=== PATIENT | female | born 1940 | race Caucasian/White ===

== ENCOUNTER 2016-10-21 08:51 | Inpatient (IN) | payer MEDICARE, OTHER ==
[2016-10-21] VITALS (14 sets, daily range): BP systolic 96–147; BP diastolic 61–88; PULSE 67–86; RESP 13–23; O2SAT 90–97
[~2016-10-21] VITALS: Ht 167.6 cm; Wt 36.3 kg
[2016-10-21] MEDS: Lactated Ringer's 1,000 ML IV SCH ×4 (05:00→18:45)
[2016-10-21] MEDS: Vancomycin Inj 1,000 MG in IV Premix 1 EACH IV SCH ×2 (06:00→09:51)
[~2016-10-21 08:51] MED LIST: CALC-78 PO; Clindamycin 900 mg/50 mL D5W IV SCH; LEVO88TA4 PO; Lactated Ringer's 1,000 ML IV SCH; MELO7.5O PO; OXYQ113.2 VAGINAL
--- NOTE | 2016-10-21 11:47 | PCM.HPANE ---
Patient Data Date of Service: Oct 21, 2016 Surgeon Admitting Provider: Attending Provider:Octavio Pizarro MD Primary Care Physician:Yesenia Padilla MD Other Provider:Elisa Rodriguez Anesthesia Reason for Visit Right Hip Arthritis Ht/WT & BMI Height (Feet): 5 Height (Inches): 6 Weight (Kilograms): 36.3 Body Mass Index 12.00 Allergies Coded Allergies: Penicillins (Verified Allergy, Unknown, 10/21/16) nickel (Verified Adverse Reaction, Severe, REDNESS, 10/19/16) Uncoded Allergies: NOVACAIN (Allergy, Severe, SWELLING, 10/21/16) Past Anesthesia History Anesthesia History: Denies:: Anesthesia Reactions, Malignant Hyperthermia Diabetes History Hx Diabetes?: No MRSA MRSA: No Medications Home Meds Incl Beta Annie: No Reported Medications Oxyquinoline/Sod.lauryl Sulfat (Trimo-Horowitz Jelly)113.4 Gm Jelly.appl0.5 Gm VAGINAL 2X/WEEK 10/19/16 Levothyroxine 88 Mcg Flpirf81 Mcg PO DAILY Ref 0 10/19/16 Calcium Carbonate/Vitamin D3 (Calcium 500 + Vit D Caplet)1 Each Tablet1 Each PO DAILY 10/19/16 Meloxicam 7.5 Mg/5 Ml Oral.susp15 Mg PO DAILY 30 Days 10/19/16 History History of ENT Problems?: No Denture Type: Full- Upper Full- Lower Hx of Heart Problems?: No Cardiovascular History: Denies:: Heart Murmur Hypertension Hx of Respiratory Problem?: No Respiratory History: Denies:: Use of C-PAP Machine Hx Neurologic Problems?: Yes Neurological History: Positive for:: Headaches Denies:: Parkinson's Disease (TREMOR) Hx of GI Problems?: No Hx of Problems?: Yes Genitourinary History: Positive for:: Kidney Stones (HX KIDNEY STONES PASSED ON OWN & S/P LITHOTRIPSY) Urinary Tract Infection (HX OF) Female Hx: Positive for:: Problems with Breasts? (S/P BREAST BX/LUMPECTOMY FOR CA) Denies:: Currently Skin History: Denies:: History Skin Disorders? Pressure Ulcers Hx Musculoskeletal Problems?: Yes Musculoskeletal History: Positive for:: Degenerative Joint Osteoarthritis (RT HIP=CURRENT PROBLEM) Hx of Psycho/Social Problems?: Yes Psycho Social History: Positive for:: Hx Depression (HX OF) Hx Surgeries?: Yes (LITHOTRIPSY,BREAST BX/LUMPECTOMY) Hx Any Other Health Problems?: Yes Other History: Positive for:: Cancer (BREAST) Thyroid Disease Denies:: Endocrine Disease Hospitalization Hx Diabetes: No Have You Smoked inLast 12 mo: NoApprox How Many Cigarettes/day: 30YR HX Stop/Bang S-Snoring: Do You Snore Loudly: No T-Tired: feel tired, fatigued: No O-Obsered: Observed not breath: No P-Blood Pressure: treated: No B- Body Mass Index > 35 kg/m2: No A- Age over 50: Yes N- Neck Large Circumference: No G- Gender Male: No SKYLER Total Score: 1 SKYLER Risk Assessment: Low Risk, <3 Yes Risk Assessment Category Category 1A: Patient has history of documented sleep apnea, and HAS NOT received any narcotic, sedative or anesthesia administration during this stay. Category 1B: Patient has history of documented sleep apnea, and HAS received any narcotic , sedative or anesthesia administration during this stay Category 2: Patient has SUSPECTED Obstructive Sleep Apnea, and HAS received any narcotic , sedative or anesthesia administration during this stay. Category 3: Patient has SUSPECTED Obstructive Sleep Apnea and HAS NOT received narcotic, sedative or anesthesia administration during this stay. Category 4: Outpatient in Procedural Areas with known sleep apnea or who screen positive for High Risk via the STOP/BANG questionnaire. Exam Exam Vital Signs Vital Signs Date Time Temp Pulse Resp B/P Pulse Ox O2 Delivery O2 Flow Rate FiO2 10/21/16 09:27 36.3 68 20 134/88 97 Room Air General Appearance: Alert, Oriented X3, Cooperative, No Acute Distress HEENT/AIRWAY: MP 2 Lungs: Clear to Auscultation, Normal Air Movement Heart: Exam Unremarkable, Regular Rate/Rhythm, No Murmurs/Rubs/Gallops Meds/Labs/Diagnostics Admission Meds Current Medications Lactated Ringer's 1,000 ml @ 120 mls/hr Q8H20M IV Last administered on 09:15; Start 10/21/16 at 05:00; Stop 10/21/16 at 13:19 Vancomycin/0.9 % Sod Chloride/ Premix (Vancomycin Inj/ IV Premix) 200 ml @ 133.333 mls/hr PREOP IV Last administered on 10/21/16 09:51; Start 10/21/16 at 06:00; Stop 10/21/16 at 19:00 Plan Impression Patient chart reviewed, patient interviewed and anesthestic plan with risks, benefits, and alternatives discussed, and informed consent obtained. NPO Status: 10/20/16 ASA Physical Status: ASA2 Mod Systemic Disease Anesthetic Plan: SAB Bene/Risks/Altern/Consents: Yes HP Complete Prior to Induction: Yes Other Discussed patient local anesthesia allergies. She states that an candy spreader helper said it was actually to an additive. She has subsequently had lidocaine without reaction. Keny Michael MD Oct 21, 2016 11:47
[2016-10-21] MEDS ORDERED: Tranexamic Acid 100 mg/mL 10 mL Inj ONE (13:13)
[2016-10-21] MEDS ORDERED: 0.9% Sodium Chloride 200 ML ONE (13:14)
[2016-10-21] MEDS ORDERED: Tranexamic Acid 100 mg/mL 10 mL Inj TOPICAL ONE ×2 (13:25→14:25)
[2016-10-21] MEDS ORDERED: hydrALAZINE 20 mg/mL Inj IVPUSH PRN (13:45)
[2016-10-21] MEDS ORDERED: Labetalol 5 mg/mL 4 mL Inj IV PRN (13:45)
[2016-10-21] MEDS ORDERED: HYDROmorphone 1 mg/mL Inj IVPUSH PRN (13:45)
[2016-10-21] MEDS ORDERED: EPHEDrine Sulfate 50 mg/mL Inj IVPUSH PRN (13:45)
[2016-10-21] MEDS ORDERED: fentaNYL-PF 50 mCg/mL 2 mL Inj IVPUSH PRN (13:45)
[2016-10-21] MEDS ORDERED: MetoCLOpramide 5 mg/mL 2 mL Inj IVPUSH PRN ×2 (13:45→18:35)
[2016-10-21] MEDS ORDERED: Phenylephrine 10,000 mCg/mL Inj IVPUSH PRN (13:45)
[2016-10-21] MEDS ORDERED: Ondansetron 2 mg/mL 2 mL Inj IVPUSH PRN ×3 (13:45→18:35)
[2016-10-21] MEDS ORDERED: Atropine 0.4 mg/mL Inj IVPUSH PRN (13:45)
[2016-10-21] MEDS ORDERED: Lactated Ringer's 500 ML IV PRN (13:45)
[2016-10-21] MEDS ORDERED: Lactated Ringer's 1,000 ML IV SCH (13:45)
[2016-10-21] MEDS ORDERED: Gentamicin 40 mg/mL 2 mL Inj IRRIGATION ONE (13:57)
[2016-10-21] MEDS ORDERED: Bupivacaine-MPF 0.5% W/EPI 30 mL Inj INFILTRATE ONE (13:58)
--- NOTE | 2016-10-21 15:44 | DRSVH ---
PROCEDURE: X-RAY PELVIS ONE OR TWO VIEWS (10180) INDICATIONS: POSTOPERATIVE TECHNIQUE: 1 view of the lower pelvis acquired. COMPARISON: [facility], , XR PELVIS 1 OR 2VW, 05/11/2016, 17:32. FINDINGS: Bones: Patient is status post right hip arthroplasty, with hardware components in expected positions . The hip joint appears congruent. The visualized bony structures appear intact. Soft tissues: Overlying postoperative changes are noted. No suspicious soft tissue densities. IMPRESSION: Right hip prosthesis in anatomic alignment. Dictated by: Javier Spence M.D. on 10/21/2016 at 15:42 Approved by: Javier Spence M.D. on 10/21/2016 at 15:42
--- NOTE | 2016-10-21 15:49 | OP ---
[address] [address] OPERATIVE REPORT PATIENT: YELITZA VALDES : 1940 MR#: [id number] ADMIT: 10/21/2016 JOB ID: [id number] DATE OF SURGERY: 10/21/2016 PREOPERATIVE DIAGNOSIS(ES): Severe arthritis, right hip. POSTOPERATIVE DIAGNOSIS(ES): Severe arthritis, right hip. PROCEDURE: Total hip arthroplasty. SURGEON: Octavio Pizarro MD. [employer]DER [employer]: John Davila PA-C. The assistant manager retail required due to the complexity of the operation. INDICATIONS: Severe progressive osteoarthritis. Symptoms uncontrolled by conservative treatment. The patient wishes to proceed, understanding and accepting the potential for risks and complications which include, but are not limited to, infection, thromboembolic or neurovascular events, as well as potential for dislocation, leg length inequality and other complications. DESCRIPTION OF PROCEDURE: The patient was prepped and draped in the usual sterile fashion. A posterolateral approach was made. Dissection was carried down. External rotators tagged and released. Capsule T-tagged and released. Then placed in the pelvis, and length and offset measurements were made. The hip was dislocated. A standard femoral neck cut was made. The acetabulum was cleaned of soft tissues. Progressively reamed with a 53 reamer, and a 54 outer bearing shell was impacted into place. Excellent stability was obtained with the shell fixation. Straight T-handle reamer, followed by box osteotome and progressive broaching of the femoral canal to a 9 Taperloc implant. Trial reductions performed alternating between a high offset and a standard offset, and a standard offset with a +6 neck length was chosen. The patient has a NICKEL allergy, and it was chosen to use a ceramic head due to the NICKEL allergy. Wounds were irrigated with a sterile irrigant. Final implant was placed. Repeat trial reductions confirming the above stability and appropriate length and offset. Excellent fixation of the implant was achieved. The final construct was assembled. A deep irrigation with dilute Betadine solution, followed by closure of the deep fascia with #2 Quill, 2-0 Vicryl, 3-0 Vicryl and a 4-0 intracuticular stitch was utilized. Patient tolerated procedure well. There were no complications.
--- NOTE | 2016-10-21 15:50 | PCM.ANEP1 ---
Post Anesthesia Phase 1 PACU Phase 1 Assessment Date of Service: Oct 21, 2016 Vital Signs Vital Signs Date Time Temp Pulse Resp B/P Pulse Ox O2 Delivery O2 Flow Rate FiO2 10/21/16 15:30 67 13 106/63 97 Nasal Cannula 2 10/21/16 15:15 35.8 72 15 105/61 95 Nasal Cannula 2 10/21/16 15:10 68 15 107/63 96 Nasal Cannula 2 10/21/16 15:05 16 90 10/21/16 15:05 72 23 134/65 92 Nasal Cannula 2 10/21/16 15:00 36.4 147/67 10/21/16 09:27 36.3 68 20 134/88 97 Room Air Anesthetic Administered: SAB Level of Alertness: Awake, talking HARMON's with Equal Strength: Yes Pain: No Nausea or Vomiting: No Lungs: Clear to Auscultation, Normal Air Movement Dermatome Level: L1,2 (Groin) Keny Michael MD Oct 21, 2016 15:50
--- NOTE | 2016-10-21 15:50 | PCM.ANEP2 ---
Post Anesthesia Evaluation ASA/CMS Post Anesthesia Date of Service: Oct 21, 2016 VS in Patient's Normal Range?: Yes Resp Stable; Airway Patent?: Yes CV Function & Hydration Stable: Yes Mental Status Recovered?: Yes Pain control Satisfactory?: Yes N/V Control Satisfactory?: Yes Keny Michael MD Oct 21, 2016 15:50
--- NOTE | 2016-10-21 17:30 | NUR ---
ADMIT to [facility] Patient arrived to room 1001 on hospital bed. Alert and oriented, answering all questions. 2 LPM O2 via NC. Franks catheter patent and draining. Island dressing to R hip C/D/I. SCD on non-operative leg. Denies any pain. Able to wiggle toes bilaterally and lift legs off bed. Denies nausea. Oriented to room. Reminded of hip precautions.
[2016-10-21] MEDS ORDERED: Propofol 10,000 mCg/mL 20 mL Inj ONE (17:49)
[2016-10-21] MEDS ORDERED: fentaNYL-PF 50 mCg/mL 2 mL Inj ONE (17:49)
[2016-10-21] MEDS ORDERED: Phenylephrine/NS 100 mCg/mL 10 mL Syringe IVPUSH ONE (17:49)
[2016-10-21] MEDS ORDERED: Dexamethasone 4 mg/mL Inj ONE (17:49)
[2016-10-21] MEDS ORDERED: Ondansetron 2 mg/mL 2 mL Inj ONE (17:49)
[2016-10-21] MEDS ORDERED: EPHEDrine/NS 5 mg/mL 5 mL Syringe ONE (17:49)
[2016-10-21 18:02] LABS: APPEARANCE,URINE HAZY (CLEAR,HAZY); COLOR,URINE STRAW (YELLOW); OCCULT BLOOD,URINE NEGATIVE (NEGATIVE); PH,URINE 7.5 (5.0-8.0); UROBILINOGEN,URINE NORMAL (NORMAL)
[2016-10-21] MEDS ORDERED: Sodium Biphos-Phos 133 mL Enema RECTAL PRN (18:35)
[2016-10-21] MEDS ORDERED: Magnesium Hydroxide 10 mL Oral Concentration PO PRN (18:35)
[2016-10-21] MEDS ORDERED: diphenhydrAMINE 25 mg Capsule PO PRN (18:35)
[2016-10-21] MEDS ORDERED: hydrOXYzine Inj 25 MG/1 mL SDV IM PRN (19:00)
[2016-10-21] MEDS: Ketorolac 15 mg/mL Inj IVPUSH SCH (19:06)
[2016-10-21] MEDS: hydrOXYzine Pamoate 25 mg Capsule PO PRN (19:58)
[2016-10-21] MEDS: HYDROcodone-APAP 5-325 mg Tablet PO PRN ×2 (19:59→21:21)
[2016-10-21] MEDS ORDERED: Vancomycin Inj 1,000 MG in IV Premix 1 EACH IV ONE (22:00)
[2016-10-21] MEDS: Clindamycin 600 mg/50 mL D5W IV SCH (22:30)
--- NOTE | 2016-10-21 23:54 | NUR ---
PAIN: Pt. c/o surgical pain on right leg. Was given IV Toradol by day shift RN, No effective for pain control. Given PO Vicodin and Vistaril, No effective. Given 5 mg of Roxicodone, pt. resting for now. Will cont. to monitor pain issues. On going care.
[2016-10-22] VITALS (7 sets, daily range): BP systolic 87–102; BP diastolic 50–67; PULSE 63–74; RESP 16–20; O2SAT 91–93
[2016-10-22] MEDS: Ketorolac 15 mg/mL Inj IVPUSH SCH ×2 (00:29→05:45)
[2016-10-22] MEDS: hydrOXYzine Pamoate 25 mg Capsule PO PRN ×3 (03:03→20:11)
[2016-10-22] MEDS: HYDROcodone-APAP 5-325 mg Tablet PO PRN (03:03)
[2016-10-22 05:42] LABS: BASOPHILS % (AUTO) 0.1 % (0-3); EOSINOPHILS % (AUTO) 0 % (0-5); MONOCYTES % (AUTO) 7.8 % (4-12); Mean Corpuscular Hemoglobin 31.6 pg (27.0-35.0); Mean Corpuscular Volume 96.6 fL (81-100); NEUTROPHILS % (AUTO) 85.5 % (40-74); Platelet Count 262 bil/L (150-400)
[2016-10-22] MEDS: Clindamycin 600 mg/50 mL D5W IV SCH (05:44)
--- NOTE | 2016-10-22 06:26 | PCM.PNORTH ---
Subjective Date of Service: Oct 22, 2016 Visit Information: Reason for Visit Right Hip Arthritis Surgery/Surgery Date Post-Op Day # Date of Admission: Oct 21, 2016 at 17:48 Hospital Day # Subjective Palpation awake and alert with no complaints of pain at this time. Discussed anticipated hospital course today and encourage participation with formal physical therapy. Discussed discharge to home on a referral for postop day #3. Postop General: No Complaints, No Shortness of Breath, No Chest Pain Pain Management: PO, IV Push Objective Exam Objective Orientation: Alert and oriented 3 and pleasant. Dressing: Intraoperative dressing is clean dry and intact. Wound: Wound not observed today. Compartments: Calf and thigh are soft and nontender. Mobility/sensation: Toe wiggle and sensation are intact at right lower extremity distally. Abduction wedge: Pupils are found between the knees for abduction. BENEDICT hose: Absent Franks: In place and working Drain: Absent Gait: No gait with physical therapy as of this time. Vital Signs and I/O Vital Sign - Last Date Time Temp Pulse Resp B/P Pulse Ox O2 Delivery O2 Flow Rate FiO2 10/22/16 00:15 36.3 74 17 102/67 93 Nasal Cannula 2.00 Intake and Output 10/21/16 10/21/16 10/22/16 Cumulative From/Thru 15:00 23:00 07:00 10/19/16 08:26 - 10/22/16 05:47 Intake Total 1200 ml 304 ml 764 ml 2268 ml Output Total 250 ml 200 ml 450 ml Balance 950 ml 104 ml 764 ml 1818 ml Intake IV Total 1200 ml 304 ml 764 ml 2268 ml Output Urine Total 150 ml 200 ml 350 ml Estimated Blood Loss 100 ml 100 ml Lab & Micro Results Laboratory Tests Test 10/21/16 16:50 10/22/16 05:10 Urine Color Straw (YELLOW) Urine Appearance Hazy (CLEAR,HAZY) Urine pH 7.5 (5.0-8.0) Urine Specific [place] 1.015 (1.003-1.035) Urine Protein Negativemg/dL (NEG,TRACE) Urine Glucose (UA) Negativemg/dL (NEGATIVE) Urine Ketones Negativemg/dL (NEGATIVE) Urine Occult Blood Negative (NEGATIVE) Urine Nitrite Negative (NEGATIVE) Urine Bilirubin Negative (NEGATIVE) Urine Urobilinogen Normalmg/dL (NORMAL) Urine Leukocyte Esterase Trace (NEGATIVE) Urine RBC 0-2/hpf (0-2) Urine WBC 6-10/hpf (0-5) Urine Epithelial Cells Moderate/hpf (NONE-MOD) Urine Crystals None seen (NONE SEEN) Urine Bacteria Few/hpf (NONE-FEW) Urine Hyaline Casts None/lpf (NONE) Urine Granular Casts None seen (NONE SEEN) Urine Waxy Casts None seen (NONE SEEN) Urine Red Blood Cell Casts None seen (NONE SEEN) Urine White Blood Cell Casts None seen (NONE SEEN) Urine Mucus Present (None Seen) Urine Trichomonas None seen (NONE SEEN) Urine Yeast None (NONE SEEN) Urinalysis Comment Amorphous sediment Urine Culture Reflexed Indicated White Blood Count 12.9th/mm3 (3.8-10.1) Red Blood Count 3.80mil/mm3 (3.90-5.20) Hemoglobin 12.0g/dL (12.0-15.6) Hematocrit 36.7% (35.0-46.0) Mean Corpuscular Volume 96.6fL (81-100) Mean Corpuscular Hemoglobin 31.6pg (27.0-35.0) Mean Corpuscular Hemoglobin Concent 32.7% (32.0-37.0) Red Cell Distribution Width 14.3% (12.3-15.4) Platelet Count 262bil/L (150-400) Neutrophils (%) (Auto) 85.5% (40-74) Lymphocytes (%) (Auto) 6.3% (14-46) Monocytes (%) (Auto) 7.8% (4-12) Eosinophils (%) (Auto) 0% (0-5) Basophils (%) (Auto) 0.1% (0-3) Microbiology 10/21/16 Urine Culture, Received Pending Result Diagram: 10/22/16 0510 General Appearance: Alert, Oriented X3, Cooperative, No Acute Distress Extremities: No Compartment Syndrom Noted, Thigh & Calf Soft/Nontender Postop Sensory Motor: Distal Motor Intact, Movement in Toes, Distal Sensation Intact Activity: Activity per PT, Ambulate with PT (weightbearing as tolerated on the right lower extremity using a front-wheeled walker.) Catheters: Urethral 2 Way Franks Assessment & Plan Impression Patient is a 75-year-old female who is talkative and alert and in good spirits this morning. She is undergone a right total hip arthroplasty on 10/21/2016. We have discussed her discharge plans and she has been to the total joint class and has set up all her necessary discharge issues. She will discharge her ex- 's home with he and additional help as well. She has 4 steps to her home and I have advised her to discuss this with physical therapy. I have advised patient that she will discharge on postoperative day #3 and she is aware of this. Problems: Plan Postop day # 1 from right total hip arthroplasty performed on 10/21/[address] Octavio Pizarro. Weight bearing status: Weight-bear as tolerated on the right lower extremity Mobility aid: Front wheeled walker Immobilization: None Precautions: Standard posterior hip precautions. Maintained pillow between her knees while in bed. No hip flexion past 90. No internal rotation. No crossing of the legs. Physical therapy: Continue formal physical therapy for mobility, gait safety with posterior hip precautions. Patient states she has 4 steps to enter her home. Pain control: The patient to by mouth pain medication as soon as possible beginning today. Use Percocet 5 mg and Vistaril. DVT prophylaxis: Lovenox 40 mg subcutaneous daily 2 weeks postop with transition to ASA 325 mg EC by mouth twice a day for an additional 4 weeks totaling 6 weeks postoperative DVT prophylaxis. Wound care: Keep surgical incision clean dry and covered until patient is seen in office in 2 weeks. Franks: In place and working this morning. Franks should be discontinued today on postop day #1 after first PT session. Dressing: Interoperative dressing is clean dry and intact and will be changed tomorrow postop day #2. Abduction wedge: Pillows are placed between knees while in bed. SCDs: LLE SCD in place and working. BENEDICT hose: Bilateral thigh high BENEDICT hose will be ordered today. Nursing communication: Nursing please discontinue Franks today on postop day #1 after first PT session. Nursing please measure for an fit bilateral thigh-high BENEDICT hose today. 2-week follow-up: Follow-up in 2 weeks at [facility] orthopedic clinic on prearranged appointment with mid-level provider for wound check and suture removal. 6-week follow-up: Follow-up in 6 weeks at [facility] orthopedic clinic with Dr. Octavio Pizarro on prearranged appointment with AP pelvis and right crosstable lateral hip x-rays on arrival. Plan: Anticipate the patient will participate fully with formal therapy and be prepared for discharge on a before postop day #3. Discharge instructions: Weightbearing as tolerated on the right lower extremity using frontwheel walker. Keep incision clean dry and covered until seen in the office in 2 weeks. Patient may shower after postop day #4 if wound has been dry for 24 hours. With flexion past 90. Avoid internal hip rotation. Avoid crossing of the legs. Discharge plan: Anticipate discharge to ex husbands home with ex- and other family and friends as caregiver on a before postop day #3. VTE Prophylaxis: Sub-Q Enoxaparin (Lovenox 40 mg subcutaneous daily 2 weeks with transition to ASA 325 mg EC by mouth twice a day for an additional 4 weeks totaling 6 weeks postoperative DVT prophylaxis.), SCDs, BENEDICT Hose (bilateral thigh-high BENEDICT hose) Steve Celaya PA-C Oct 22, 2016 06:26
[2016-10-22] MEDS: oxyCODONE-Acetamin 5-325 mg Tablet PO PRN ×4 (08:24→20:12)
--- NOTE | 2016-10-22 11:23 | NUR ---
Evaluation completed. Please go to "Notes" then click on "Assessments and Notes" (bottom left corner of screen). Then select appropriate discipline tab on top of screen.
[2016-10-22] MEDS: Lactated Ringer's 1,000 ML IV SCH (11:25)
--- NOTE | 2016-10-22 15:58 | NUR ---
ACTIVITY/PAIN/PEREZ Patient worked with PT x2 and OT x1 today and did very well. Pain has been 3/10 at the worst and was pre-medicated prior to therapy sessions with percocet 1 tab. This has been controlling pain well throughout the day. Perez catheter was d/c'd at 1000 and patient has been able to void spontaneously without any difficulty. Bilateral thigh high BENEDICT hose have been applied as well. Care continues.
[2016-10-23] MEDS: Lactated Ringer's 1,000 ML IV SCH (04:05)
[2016-10-23 04:49] VITALS: BP 165/92; PULSE 77; RESP 20; O2SAT 97
[2016-10-23] MEDS: hydrOXYzine Pamoate 25 mg Capsule PO PRN ×3 (04:58→12:14)
[2016-10-23] MEDS: oxyCODONE-Acetamin 5-325 mg Tablet PO PRN ×2 (04:59→08:45)
--- NOTE | 2016-10-23 06:21 | NUR ---
ACTIVITY: Pt. resting in bed most of the night. Was up to the bathroom to void this am, OOB with FWW and one person SBA tolerated well. Was medicated for pain at HS, Pt. states she slept soundly tonight, just wok up this am because she had to void. At this time she reported pain at 8/10, requested pain medication. Given 2 Percocet and 25 mg of Vistaril. Right hip dressing is CDI, A & O, VSS.
[2016-10-23 09:37] VITALS: BP 93/59; PULSE 68; RESP 18; O2SAT 93
--- NOTE | 2016-10-23 10:22 | PCM.DIORTH ---
Ortho Discharge Instruction Date of Service: Oct 23, 2016 Dates of Hospitalization Date of Hospital Admission Oct 21, 2016 at 17:48 Providers Admitting Physician: Octavio Pizarro MD Primary Care Physician: Yesenia Padilla MD Attending Physician: Octavio Pizarro MD Diet Discharge Diet: No restrictions Activity Discharge Activity-General: Balance rest and activity, Elevate & ice extremity , May drive in (1 month) Right Lower Extremity: Weight Bearing as tolerated Discharge Assist Device: Front Wheeled Walker Dressing and Incisional Care Discharge Dressing Care: Keep dressing clean, dry & intact Discharge Hygiene: May shower (see instructions below), NO bathtub, hot tub or whirlpool Additional Instructions Discharge Instructions Weightbearing: Weightbearing as tolerated with walker DVT prophylaxis: Lovenox 40 mg subcutaneous 2 weeks followed by aspirin 81 mg twice a day 4 weeks Activity: Increase your walking a little more each day. Wound care: Change the dressing every 2 days. Wear the compression stockings for 1 month on the surgical leg. May remove to shower, can also be removed at night if you want. The patient may shower if the wound has no drainage present x 24 hours. Wound may be uncovered to shower. Let soap and water run over the wound, pat dry and apply a new dressing. Hip precaution positions to prevent dislocation: No flexing forward past 90, no crossing the legs at the knee, no active abduction for 6 weeks after surgery Follow Up Plan Follow Up Plan Follow-up plan: In 2 weeks at [facility] with RICK for wound check and at [address] Pizarro with x-rays Call your provider for: Fever, Chills, Shortness of breath, Vomitting, Drainage at incision (excessive), Wound redness Karmen Spears PA-C Oct 23, 2016 10:22
--- NOTE | 2016-10-23 10:42 | PROG NOTE ---
[address] [address] PROGRESS NOTE PATIENT: YELITZA VALDES : 1940 MR#: [id number] ADMIT: 10/21/2016 JOB ID: [id number] DATE: 10/23/2016 NARRATIVE: The patient is postop day #2. Adequate pain control at this point in time. Dressing is intact. She is neurovascularly intact in the extremity. She had a lot of discomfort the first night and did not sleep well and this has slowed down her progress somewhat. She seems to be comfortable today. She has not reached safety goals for discharge at this point in time but will be working with Physical Therapy today. She will be discharged from the hospital either this afternoon or tomorrow depending on her progress in physical therapy and safety factors for discharge.
[2016-10-23] MEDS ORDERED: HYDR-3797 PO (10:56)
[2016-10-23] MEDS ORDERED: ENOX40DI8 SUBQ (10:56)
[2016-10-23] MEDS ORDERED: OXYC1TAB24 PO (10:56)
--- NOTE | 2016-10-23 10:59 | PCM.DC.ORT ---
Discharge Summary Date of Service: Oct 23, 2016 Date of Hospital Admission: Oct 21, 2016 at 17:48 Date of Surgery: Oct 21, 2016 Date of Discharge: Oct 23, 2016 Reason for Hospitalization: Right hip arthritis Procedures Performed: Right total hip arthroplasty Hospital Course: The patient was admitted to the hospital on 10/21/2016 and underwent the above procedure. Antibiotic prophylaxis consisting of Ancef and vancomycin. The surgeon was Dr. Pizarro. A Franks was placed perioperatively. Patient tolerated the procedure well and was transferred to recovery room in stable condition. Franks was discontinued on postop day 1. Patient had physical therapy to work on ambulation and transfers. Weightbearing as tolerated with walker. Pain was managed with morphine, Percocet, Debary, oxycodone and Vistaril. DVT prophylaxis: Lovenox 40 mg SQ per day, SCD's and thigh-high BENEDICT hose. Patient progressed well with physical therapy and on POD-2 was able to independently transfer from sitting to standing. She progressed very well with her ambulation. She was discharged home in the afternoon. Follow-up: at [facility] 2 weeks postop for wound check and at [address] Pizarro with x-ray Diagnosis at Time of Discharge Status post right total hip arthroplasty Problems: Disposition: Discharged home in stable condition with her to assist in her care Discharge Instructions: Weightbearing: Weightbearing as tolerated with walker DVT prophylaxis: Lovenox 40 mg subcutaneous 2 weeks followed by aspirin 81 mg twice a day 4 weeks Activity: Increase your walking a little more each day. Wound care: Change the dressing every 2 days. Wear the compression stockings for 1 month on the surgical leg. May remove to shower, can also be removed at night if you want. The patient may shower if the wound has no drainage present x 24 hours. Wound may be uncovered to shower. Let soap and water run over the wound, pat dry and apply a new dressing. Hip precaution positions to prevent dislocation: No flexing forward past 90, no crossing the legs at the knee, no active abduction for 6 weeks after surgery Calcium Carbonate/Vitamin D3 (Calcium 500 + Vit D Caplet) 1 Each Tablet 1 EACH PO DAILY Enoxaparin Sodium (Enoxaparin Sodium) 40 Mg/0.4 Ml Syringe 40 MG SUBQ Q24H Hydroxyzine Pamoate (HydrOXYzine Pamoate) 25 Mg Capsule 25-50 MG PO Q4H PRN PRN For Spasm and/or Restlessness Levothyroxine (Levothyroxine) 88 Mcg Tablet 88 MCG PO DAILY Oxyquinoline/Sod.lauryl Sulfat (Trimo-Horowitz Jelly) 113.4 Gm Jelly.appl 0.5 GM VAGINAL 2X/WEEK oxyCODONE-Acetaminophen 5-325 mg (oxyCODONE-Acetaminophen 5-325 mg) 1 Each Tablet 1-2 TAB PO Q4H PRN PRN For Severe Pain Max 8 per day Karmen Spears PA-C Oct 23, 2016 10:59
--- NOTE | 2016-10-23 13:16 | NUR ---
Social work note - Initial assessment and discharge Jocy Broussard is a 75 yr old admitted for R Hip surgery. EMR reviewed: Pt has Medicare and [employer] [place] insurance. Her PCP is Dr Padilla. No DPOA on chart. See attached Cm initial assessment. DIRECTOR OF HOME HEALTH SERVICES met with pt - introduced d/c planning and explained SW role. Pt lives at home with her exchandrasband and plans to return there at d/c. She is independent at baseline. She has a FWW for help after surgery and has outpt PT set up for home. She anticipates going home later this afternoon with no identified needs. DIRECTOR OF HOME HEALTH SERVICES provided information about DPOA and paperwork. pt will fill it out and return. Plan Home with family in POV - no needs identified. JOVITA Good Addendum: 10/23/16 at 1320 by PATTI PATTERSON SS Amended: Links added.
--- NOTE | 2016-10-23 18:35 | NUR ---
Discharge Pt left with family in stable condition with all belongings at 1530, IV d/c'd, follow up appointments set, Prescriptions given. teaching done on precautions.
== END 2016-10-23 15:28 | disposition home or self-care (01) | DRG 470 ==
LOC: SAS 08:51 → OSC 17:48
PROVIDERS: ADMIT Orthopaedic Surgery; ATTEND Orthopaedic Surgery
PROC: 0SR903A Replacement of Right Hip Joint with Ceramic Synthetic Substitute, Uncemented, Open Approach (ICD-10-PCS; principal; 2016-10-21 11:30)
DX: M16.11 Unilateral primary osteoarthritis, right hip (principal); I95.9 Hypotension, unspecified